=== PATIENT | male | born 1945 | race Caucasian/White ===

== ENCOUNTER 2016-12-25 09:44 | Emergency (ER) | payer MEDICARE ==
[~2016-12-25] VITALS: Ht 165.1 cm; Wt 78.0 kg
[2016-12-25] MEDS ORDERED: METO-99 PO (10:26)
[2016-12-25] MEDS ORDERED: DIGO125T PO (10:26)
[2016-12-25] MEDS ORDERED: ATOR20TA9 PO (10:26)
[2016-12-25] MEDS ORDERED: WARF5TAB7 PO (10:26)
[2016-12-25 11:53] LABS: BLOOD UREA NITROGEN 22 mg/dL (7-18)
[2016-12-25 11:57] LABS: ASPARTATE AMINO TRANSFERASE 27 U/L (15-37)
[2016-12-25] MEDS ORDERED: OMNIPAQUE 350 MG/ML, 100ML BOTTLE ONE (12:47)
[2016-12-25] MEDS ORDERED: HYDROcodone/APAP 5/325 TABLET ONE (13:12)
[2016-12-25] MEDS ORDERED: HYDROcodone/APAP 5/325 TABLET PO ONE (13:30)
[2016-12-25 13:49] VITALS: BP 128/71
== END 2016-12-25 13:51 | disposition home or self-care (01) ==
LOC: ED 10:54
DX: S40.011A Contusion of right shoulder, initial encounter (principal); F17.200 Nicotine dependence, unspecified, uncomplicated; T45.515A Adverse effect of anticoagulants, initial encounter; Z79.01 Long term (current) use of anticoagulants; X58.XXXA Exposure to other specified factors, initial encounter; Y93.89 Activity, other specified; Y99.8 Other external cause status; Y92.009 Unspecified place in unspecified non-institutional (private) residence as the place of occurrence of the external cause
CPT/HCPCS: 36415; 73206; 80053; 85025; 85610; 85730; 99285; Q9967

== ENCOUNTER → 2016-12-26 | Outpatient (CLI) | payer MEDICARE ==
[~2016-12-26] MED LIST: ATOR20TA9 PO; DIGO125T PO; GADOBUTROL 7.5 MMOL/7.5 ML PFS ONE; METO-99 PO; WARF5TAB7 PO
== END | disposition home or self-care (01) ==
LOC: EDSTATUS 14:00 → RAD 14:02
PROVIDERS: ATTEND Nurse Practitioner Family
DX: S40.011A Contusion of right shoulder, initial encounter (principal); R58 Hemorrhage, not elsewhere classified; X58.XXXA Exposure to other specified factors, initial encounter; Y93.89 Activity, other specified; Y92.89 Other specified places as the place of occurrence of the external cause; Y99.8 Other external cause status
CPT/HCPCS: 73223; A9585

== ENCOUNTER 2018-05-10 06:26 | Inpatient (IN) | payer MEDICARE ==
[~2018-05-10] VITALS: Ht 165.1 cm; Wt 79.6 kg
[~2018-05-10 06:26] MED LIST changes: -GADOBUTROL 7.5 MMOL/7.5 ML PFS ONE; +WARF-36 PO; -WARF5TAB7 PO
[2018-05-10] MEDS ORDERED: RIVA20TA PO (06:37)
[2018-05-10] MEDS ORDERED: SODIUM CHLORIDE 0.9% 1,000 ML IV ONE (06:43)
[2018-05-10 06:59] LABS: BASOPHILS # (AUTO) 0.06 x10^3/uL (0-0.1); BASOPHILS % (AUTO) 1 % (0-1); EOSINOPHILS # (AUTO) 0.15 x10^3/uL (0-0.4); EOSINOPHILS % (AUTO) 1 % (1-7); LYMPHOCYTES # (AUTO) 1.71 x10^3/uL (1-3.4); LYMPHOCYTES % (AUTO) 15 % (22-44); MD NO; MEAN CORPUSCULAR HEMOGLOBIN 30.6 pg (27.5-34.5); MEAN CORPUSCULAR HGB CONC 33.2 g/dL (33.2-36.2); MEAN PLATELET VOLUME 7.8 fL (7.4-10.4); MONOCYTES # (AUTO) 0.81 x10^3/uL (0.2-0.8); MONOCYTES % (AUTO) 7 % (2-9); NEUTROPHILS # (AUTO) 8.39 x10^3/uL (1.8-6.8); NEUTROPHILS % (AUTO) 75 % (42-75); PLATELET COUNT 216 x10^3/uL (130-400); RED BLOOD COUNT 4.15 x10^6/uL (4.38-5.82); RED CELL DISTRIBUTION WIDTH 14.3 % (9.4-14.8)
[2018-05-10] MEDS ORDERED: SODIUM CHLORIDE 0.9% 1,000ML IVBOLUS ONE (07:00)
[2018-05-10] MEDS ORDERED: SODIUM CHLORIDE FLUSH 10ML SYR IVF ONE (07:00)
[2018-05-10 07:12] LABS: ALANINE AMINOTRANSFERASE 32 U/L (12-78); ALBUMIN 2.9 g/dL (3.4-5.0); ANION GAP 8 mmol/L (5-15); CALCIUM 7.5 mg/dL (8.5-10.1); CHLORIDE 112 mmol/L (98-107); CREATININE 1.48 mg/dL (0.7-1.3)
[2018-05-10 07:14] LABS: ALKALINE PHOSPHATASE 72 U/L (45-117); BILIRUBIN,TOTAL 0.4 mg/dL (0.2-1.0); TOTAL PROTEIN 6.1 g/dL (6.4-8.2)
[2018-05-10 07:20] LABS: INTERNATIONAL NORMALIZED RATIO 1.3 (0.93-1.1); PROTHROMBIN TIME 13.5 Seconds (9.6-11.5)
[2018-05-10] MEDS ORDERED: SODIUM CHLORIDE FLUSH 10ML SYR IVF PRN (10:00)
[2018-05-10 10:48] VITALS: BP 138/81
[2018-05-10 11:00] VITALS: BP 138/81
[2018-05-10 12:17] VITALS: BP 129/78
[2018-05-10] MEDS ORDERED: DOCUSATE 100 MG CAPSULE PO PRN (12:30)
[2018-05-10] MEDS ORDERED: LABETALOL 5MG/ML, 20ML IVPush PRN (12:30)
[2018-05-10] MEDS ORDERED: ACETAMINOPHEN 325 MG TABLET PO PRN (12:30)
[2018-05-10] MEDS ORDERED: ONDANSETRON ODT 4 MG PO PRN (12:30)
[2018-05-10] MEDS ORDERED: hydrALAzine 20 MG/ML, 1ML IVPush PRN (12:30)
[2018-05-10] MEDS ORDERED: ONDANSETRON 2MG/ML, 2ML IVPush PRN (12:30)
[2018-05-10] MEDS ORDERED: PROMETHAZINE 25 MG/ML, 1ML IM PRN (12:30)
[2018-05-10] MEDS: SODIUM CHLORIDE 0.9% 1,000 ML IV SCH ×2 (12:54→19:41)
[2018-05-10 13:37] VITALS: BP 138/81
[2018-05-10 14:09] LABS: MICROSCOPIC NOT IND
[2018-05-10 14:11] LABS: CULTURE INDICATED? NO
[2018-05-10] MEDS: DIGOXIN 0.125 MG TABLET PO SCH (14:20)
[2018-05-10 14:44] LABS: FREE T4 (FREE THYROXINE) 1.14 ng/dL (0.76-1.46); THYROID STIMULATING HORMONE 1.63 mIU/L (0.358-3.740)
[2018-05-10] MEDS ORDERED: GOLYTELY 4,000ML ORAL.SOL PO ONE (16:00)
[2018-05-10 16:31] LABS: HEMOGLOBIN A1C 6.1 % (4.2-6.3)
[2018-05-10] MEDS: METOPROLOL TARTRATE 50 MG TABLET PO SCH (18:27)
[2018-05-10 20:29] VITALS: BP 123/78
[2018-05-10] MEDS ORDERED: ATORVASTATIN 20 MG TABLET PO SCH (21:00)
[2018-05-11 02:10] VITALS: BP 125/68
[2018-05-11 02:17] LABS: ALANINE AMINOTRANSFERASE 31 U/L (12-78); ALBUMIN 3.3 g/dL (3.4-5.0); ANION GAP 12 mmol/L (5-15); CHLORIDE 114 mmol/L (98-107); CHOLESTEROL, TOTAL 98 mg/dL (140-239); CREATININE 1.25 mg/dL (0.7-1.3)
[2018-05-11 02:20] LABS: ALKALINE PHOSPHATASE 77 U/L (45-117); BILIRUBIN,TOTAL 0.5 mg/dL (0.2-1.0); CHOL/HDL RATIO 2.5; HDL CHOL % 41 % (26-37); HDL CHOLESTEROL (DIRECT) 40 mg/dL (40-60); LDL CHOLESTEROL,CALCULATED 36 mg/dL (54-169); LDL/HDL RATIO 0.9 (0.5-3.0); TOTAL PROTEIN 6.4 g/dL (6.4-8.2); TRIGLYCERIDES 108 mg/dL (50-200); VLDL CHOLESTEROL 22 mg/dL (0-25)
[2018-05-11] MEDS: SODIUM CHLORIDE 0.9% 1,000 ML IV SCH (03:25)
[2018-05-11] MEDS: METOPROLOL TARTRATE 50 MG TABLET PO SCH (05:59)
[2018-05-11] MEDS ORDERED: PROPOFOL 10 MG/ML, 50ML ONE (07:30)
[2018-05-11] MEDS ORDERED: LIDOCAINE-MPF 2% ,5ML ONE (07:30)
[2018-05-11] MEDS ORDERED: METOPROLOL 1 MG/ML, 5ML IV PRN (08:00)
[2018-05-11] MEDS ORDERED: hydrALAzine 20 MG/ML, 1ML IV PRN (08:00)
[2018-05-11] MEDS ORDERED: FENTANYL PF 100 MCG/2ML IV PRN (08:00)
[2018-05-11] MEDS ORDERED: LABETALOL 5MG/ML, 20ML IV PRN (08:00)
[2018-05-11] MEDS ORDERED: EPHEDRINE 50 MG/ML, 1ML IM PRN (08:00)
[2018-05-11 08:43] VITALS: BP 120/71
[2018-05-11] MEDS: DIGOXIN 0.125 MG TABLET PO SCH (08:54)
[2018-05-11 09:17] VITALS: BP 150/75
[2018-05-11] MEDS ORDERED: EPINEPHRINE SYRINGE 0.1 MG/ML, 10ML ONE (09:45)
[2018-05-11] MEDS ORDERED: MAGNESIUM SULFATE PMX 2GM/50ML 50 ML IV ONE (12:00)
[2018-05-11 13:25] LABS: ALANINE AMINOTRANSFERASE 28 U/L (12-78); ALBUMIN 3.1 g/dL (3.4-5.0); ANION GAP 9 mmol/L (5-15); CALCIUM 7.8 mg/dL (8.5-10.1); CHLORIDE 114 mmol/L (98-107); CREATININE 1.14 mg/dL (0.7-1.3)
[2018-05-11 13:27] LABS: ALKALINE PHOSPHATASE 80 U/L (45-117); BILIRUBIN,TOTAL 0.5 mg/dL (0.2-1.0); TOTAL PROTEIN 6.2 g/dL (6.4-8.2)
[2018-05-11 14:06] VITALS: BP 155/76
[2018-05-11 14:07] VITALS: BP 139/73
[2018-05-11 14:09] VITALS: BP 148/73
[2018-05-11] MEDS ORDERED: METO50TA82 PO (14:30)
== END 2018-05-11 15:45 | disposition home or self-care (01) | DRG 919 ==
LOC: ED 08:13 → EDIP 08:31 → 4NOR 10:39
PROVIDERS: ADMIT Internal Medicine; ATTEND Internal Medicine
PROC: 0W3P8ZZ Control Bleeding in Gastrointestinal Tract, Via Natural or Artificial Opening Endoscopic (ICD-10-PCS; 2018-05-11)
PROC: 3E0H8GC Introduction of Other Therapeutic Substance into Lower GI, Via Natural or Artificial Opening Endoscopic (ICD-10-PCS; principal; 2018-05-11 08:30)
DX: K91.840 Postprocedural hemorrhage of a digestive system organ or structure following a digestive system procedure (principal); N17.0 Acute kidney failure with tubular necrosis; E46 Unspecified protein-calorie malnutrition; E78.00 Pure hypercholesterolemia, unspecified; I48.91 Unspecified atrial fibrillation; Y83.8 Other surgical procedures as the cause of abnormal reaction of the patient, or of later complication, without mention of misadventure at the time of the procedure; K57.30 Diverticulosis of large intestine without perforation or abscess without bleeding; K63.5 Polyp of colon; D50.0 Iron deficiency anemia secondary to blood loss (chronic); K64.1 Second degree hemorrhoids; F12.90 Cannabis use, unspecified, uncomplicated; E78.5 Hyperlipidemia, unspecified; I10 Essential (primary) hypertension; Z79.899 Other long term (current) drug therapy; Z82.3 Family history of stroke; Z82.49 Family history of ischemic heart disease and other diseases of the circulatory system; Z87.891 Personal history of nicotine dependence; Z86.010 Personal history of colon polyps; Z79.01 Long term (current) use of anticoagulants; Z83.3 Family history of diabetes mellitus; Z68.29 Body mass index [BMI] 29.0-29.9, adult; Y92.89 Other specified places as the place of occurrence of the external cause
CPT/HCPCS: 36415; 80053; 80061; 81003; 83036; 83605; 83735; 84439; 84443; 85014; 85018; 85025; 85610; 85730; 86850; 86900; 99285; G0378; J2704; J3490; J3475; J7030

== ENCOUNTER 2018-11-15 16:57 | Emergency (ER) | payer MEDICARE ==
[~2018-11-15] VITALS: Ht 165.1 cm; Wt 74.4 kg
[~2018-11-15 16:57] MED LIST changes: +ATOR20TA37 PO; -ATOR20TA9 PO; +METO50TA82 PO; +RIVA20TA PO
[2018-11-15] MEDS ORDERED: RIVA20TA PO (17:32)
--- NOTE | 2018-11-15 17:32 | NUR ---
PT PRESENTS TO ED WITH C/O QUARTER SIZED AMOUNT OF BLOOD PRESENT X1 WITH WIPE TODAY. PT STATES HE WIPED BUT DID NOT HAVE A BM. LAST BM WAS YESTERDAY, PT DENIES RED/BLACK STOOLS. PT DENIES PAIN. PT A&O, RESPS EVEN AND UNLABORED. AT BEDSIDE. PT ATTACHED TO BP AND SPO2 MONITORS. CALL LIGHT IN REACH. AWAITING MD AND DISPO.
--- NOTE | 2018-11-15 17:57 | NUR ---
ERP GRAUSZ AT BEDSIDE.
[2018-11-15 18:23] LABS: BASOPHILS # (AUTO) 0.12 x10^3/uL (0-0.1); BASOPHILS % (AUTO) 1 % (0-1); EOSINOPHILS # (AUTO) 0.19 x10^3/uL (0-0.4); EOSINOPHILS % (AUTO) 2 % (1-7); LYMPHOCYTES # (AUTO) 1.81 x10^3/uL (1-3.4); LYMPHOCYTES % (AUTO) 15 % (22-44); MD NO; MEAN CORPUSCULAR HEMOGLOBIN 30.9 pg (27.5-34.5); MEAN CORPUSCULAR HGB CONC 33.2 g/dL (33.2-36.2); MEAN CORPUSCULAR VOLUME 92.9 fL (81-97); MEAN PLATELET VOLUME 7.9 fL (7.4-10.4); MONOCYTES # (AUTO) 0.87 x10^3/uL (0.2-0.8); MONOCYTES % (AUTO) 7 % (2-9); NEUTROPHILS # (AUTO) 9.02 x10^3/uL (1.8-6.8); NEUTROPHILS % (AUTO) 75 % (42-75); PLATELET COUNT 248 x10^3/uL (130-400); RED BLOOD COUNT 4.71 x10^6/uL (4.38-5.82); RED CELL DISTRIBUTION WIDTH 15.4 % (9.4-14.8)
[2018-11-15 18:31] LABS: ALBUMIN 4.2 g/dL (3.4-5.0); ANION GAP 6 mmol/L (5-15); CALCIUM 8.9 mg/dL (8.5-10.1); CHLORIDE 108 mmol/L (98-107); CREATININE 1.35 mg/dL (0.7-1.3); INTERNATIONAL NORMALIZED RATIO 1.12 (0.93-1.1); PROTHROMBIN TIME 11.7 Seconds (9.6-11.5)
--- NOTE | 2018-11-15 18:42 | NUR ---
pt provided with water at request, ok'd by ERP. pt a&o, resps even and unlabored. nadn. all results back, chart up for recheck. awaiting further orders at this time.
--- NOTE | 2018-11-15 18:57 | NUR ---
report to amelie Reese.
[2018-11-15 19:36] VITALS: BP 151/58
== END 2018-11-15 19:38 | disposition home or self-care (01) ==
LOC: ED 17:20
DX: K92.2 Gastrointestinal hemorrhage, unspecified (principal); K92.1 Melena
CPT/HCPCS: 36415; 80048; 82040; 85025; 85610; 85730; 99283

== ENCOUNTER → 2019-10-01 | Outpatient (CLI) | payer MEDICARE ==
[~2019-10-01] MED LIST changes: -DIGO125T PO; +DIGO125T85 PO
== END | disposition home or self-care (01) ==
LOC: CFH 10:07
PROVIDERS: ATTEND Nurse Practitioner Family
DX: Z12.2 Encounter for screening for malignant neoplasm of respiratory organs (principal); I25.10 Atherosclerotic heart disease of native coronary artery without angina pectoris; J84.10 Pulmonary fibrosis, unspecified; Z87.891 Personal history of nicotine dependence
CPT/HCPCS: G0297